=== PATIENT | female | born 1995 | race African-American/Black ===

== ENCOUNTER 2017-03-14 11:25 | Emergency (ER) | payer MEDICAID, SELFPAY ==
[~2017-03-14] VITALS: Ht 162.6 cm; Wt 69.2 kg
[2017-03-14 11:37] VITALS: BP 106/74
[2017-03-14] MEDS ORDERED: IBUPROFEN 200 MG TABLET ONE (12:36)
[2017-03-14] MEDS ORDERED: IBUPROFEN 200 MG TABLET PO ONE (13:00)
== END 2017-03-14 12:50 | disposition home or self-care (01) ==
LOC: ED 12:30
DX: M25.531 Pain in right wrist (principal)
CPT/HCPCS: 29125; 99284